=== PATIENT | female | born 1990 | race Caucasian/White ===

== ENCOUNTER → 2021-09-02 | Outpatient (CLI) | payer OTHER | LOC: EXRD 15:27 | DX: M05.79 Rheumatoid arthritis with rheumatoid factor of multiple sites without organ or systems involvement (principal); G89.29 Other chronic pain; M25.552 Pain in left hip | CPT/HCPCS: 73502 ==

== ENCOUNTER → 2022-05-29 | Day surgery (SDC) | payer OTHER ==
[~2022-05-29] VITALS: Ht 167.6 cm; Wt 77.1 kg
[~2022-05-29] MED LIST: CALCIUM 250+D1 EACH PO; ENBREL50 MG/1 M1 SC; FLOVENT 110 MC7.9 GM INH; FOLIC ACID 1 MG1 MG PO; HYDROCODON-ACE1 EAC2 PO; LAMICTAL100 MG PO; METHYLPREDNISOLO4 M1 PO; PROAIR HFA8.5 GM INH; VALACYCLOVIR500 MG PO; VORT10TA PO; [UNRECOGNIZED DRUG - OTHER] PO
[2022-05-29 11:53] LABS: HEMOGLOBIN 13.2 gm/dl (12.3-15.3); RED BLOOD COUNT 4.23 M/UL (4.00-5.10); WHITE BLOOD COUNT 6.7 K/UL (4.5-11.0)
[2022-05-29 12:16] LABS: BUN/CREATININE RATIO 18 (0-10)
== END | disposition home or self-care (01) ==
LOC: OR 11:13
PROVIDERS: Orthopaedic Surgery
DX: S52.571A Other intraarticular fracture of lower end of right radius, initial encounter for closed fracture (principal); G89.18 Other acute postprocedural pain; M06.9 Rheumatoid arthritis, unspecified; F32.A Depression, unspecified; F41.9 Anxiety disorder, unspecified; J45.909 Unspecified asthma, uncomplicated; Z88.1 Allergy status to other antibiotic agents; Z88.8 Allergy status to other drugs, medicaments and biological substances; Z79.899 Other long term (current) drug therapy; W19.XXXA Unspecified fall, initial encounter
CPT/HCPCS: 73090; 76000; 80048; 84703; 85025; J0690; J1100; J2001; J2250; J2405; J2704; J2795; J3010; J3370